=== PATIENT | female | born 1990 | race Caucasian/White ===

== ENCOUNTER → 2017-06-18 | Outpatient (CLI) | payer MEDICAID ==
[~2017-06-18] MED LIST: CELEXA10 MG PO; FENUGREEK610 MG PO; FLINTSTONES COM1 CTB PO; LODINE400 MG PO; MOTRIN 400MG.400 MG PO; NOMEDS; OXY IR5 MG PO; OXYCODONE 5MG TA5 MG PO; PHENERGAN25 M3 PO; REGLAN 5MG TABLE5 MG PO; STOOL SOFTENER240 MG PO; TRAMADOL 50MG T50 MG PO; UNISOM25 M1 PO; VITAMIN B-1100 MG PO; VITAMIN B6100 MG PO
--- NOTE | 2017-06-19 06:37 | RADIOLOGY REPORT PS360 ---
CT ABD PELVIS W/ CONTRAST CLINICAL INDICATION: Left groin pain possible hernia LEFT GROIN PAIN ORDERING PHYSICIAN: Chalo Valderrama MD PATIENT AGE: 26 years COMPARISON: None TECHNIQUE: Axial images obtained with sagittal and coronal reformats. PROCEDURE: Oral Contrast: Redicat IV Contrast: 75 mL [id number]. FINDINGS: There is some minimal nodularity of the pleura in the left lung base posteriorly laterally nonspecific. Slight decreased attenuation within the left lobe of the liver at the falciform ligament area consistent with focal fatty infiltration. The spleen is slightly enlarged at 14 cm. The pancreas and adrenal glands are unremarkable. There has been prior cholecystectomy. No renal calculi or mass. No hydronephrosis. No ureteral calculi. No intestinal obstruction or free air. Unremarkable appendix. No evidence of diverticulitis. Pelvis is an unremarkable appearance. There are bilateral tubal ligation clips. Sigmoid diverticula versus nondistended haustra. No evidence of inguinal hernia or inguinal mass. IMPRESSION: 1. No acute intra-abdominal or pelvic pathology. 2. No evidence of inguinal hernia or mass. 3. Mild splenomegaly
== END ==
LOC: RAD 08:50
DX: R10.32 Left lower quadrant pain (principal)
CPT/HCPCS: Q9967